=== PATIENT | male | born 1990 | race Caucasian/White ===

== ENCOUNTER 2021-03-29 21:21 | Emergency (ER) | payer OTHER ==
--- NOTE | 2021-03-29 21:49 | ED Psychosocial ---
General Chief Complaint: Suicidal Ideation Risk Stated Complaint: PTSD,SUCIDAL THOUGHTS History of Present Illness Date Seen by Provider: March 29, 2021 Time Seen by Provider: 21:46 Initial Comments Patient presenting to the emergency department for evaluation of suicidal ideation. He says he does have depression and suicidal thoughts in the past and earlier he had a plan to use one of his guns to shoot himself. He denies prior attempts. He is a who has access to weapons. He denies any physical complaints. He is tearful and anxious but in no acute distress with normal vital signs. Allergies and Home Medications Allergies Coded Allergies: No Known Drug Allergies (Unverified , 03/29/21) Patient Home Medication List Home Medication List Reviewed: Yes Review of Systems Constitutional: no symptoms reported EENTM: no symptoms reported Respiratory: no symptoms reported Cardiovascular: no symptoms reported Gastrointestinal: no symptoms reported Musculoskeletal: no symptoms reported Skin: no symptoms reported Psychiatric/Neurological: Depressed, Emotional Problems All Other Systems Reviewed Negative Unless Noted: Yes Physical Exam Vital Signs - First Documented 03/29/21 21:32 Temp 36.4 Pulse 92 Resp 18 B/P (MAP) 134/87 (103) Pulse Ox 100 O2 Delivery Room Air Capillary Refill : Height, Weight, BMI Height: '" Weight: lbs. oz. kg; BMI Method: General Appearance: no apparent distress HEENT: PERRL/EOMI Neck: supple Respiratory: no accessory muscle use Cardiovascular: regular rate, rhythm Extremities: no pedal edema Neurologic/Psychiatric: alert, oriented x 3 Appearance/Memory: appropriate appearance Skin: warm/dry Progress/Results/Core Measures Results/Orders Lab Results Laboratory Tests Test 03/29/21 21:45 03/29/21 22:10 03/29/21 22:45 Range/Units White Blood Count 7.4 4.3-11.0 10^3/uL Red Blood Count 5.19 4.35-5.85 10^6/uL Hemoglobin 15.8 13.3-17.7 G/DL Hematocrit 45 40-54 % Mean Corpuscular Volume 86 80-99 FL Mean Corpuscular Hemoglobin 30 25-34 PG Mean Corpuscular Hemoglobin Concent 36 32-36 G/DL Red Cell Distribution Width 12.4 10.0-14.5 % Platelet Count 170 130-400 10^3/uL Mean Platelet Volume 10.1 7.4-10.4 FL Immature Granulocyte % (Auto) 1 % Neutrophils (%) (Auto) 68 42-75 % Lymphocytes (%) (Auto) 21 12-44 % Monocytes (%) (Auto) 8 0-12 % Eosinophils (%) (Auto) 3 0-10 % Basophils (%) (Auto) 1 0-10 % Neutrophils # (Auto) 5.0 1.8-7.8 X 10^3 Lymphocytes # (Auto) 1.5 1.0-4.0 X 10^3 Monocytes # (Auto) 0.6 0.0-1.0 X 10^3 Eosinophils # (Auto) 0.2 0.0-0.3 10^3/uL Basophils # (Auto) 0.1 0.0-0.1 10^3/uL Immature Granulocyte # (Auto) 0.1 0.0-0.1 10^3/uL Sodium Level 137 135-145 MMOL/L Potassium Level 4.6 3.6-5.0 MMOL/L Chloride Level 102 98-107 MMOL/L Carbon Dioxide Level 26 21-32 MMOL/L Anion Gap 9 5-14 MMOL/L Blood Urea Nitrogen 15 7-18 MG/DL Creatinine 1.08 0.60-1.30 MG/DL Estimat Glomerular Filtration Rate > 60 BUN/Creatinine Ratio 14 Glucose Level 101 70-105 MG/DL Calcium Level 9.3 8.5-10.1 MG/DL Corrected Calcium 8.5-10.1 MG/DL Total Bilirubin 1.3 H 0.1-1.0 MG/DL Aspartate Amino Transf (AST/SGOT) 44 H 5-34 U/L Alanine Aminotransferase (ALT/SGPT) 57 H 0-55 U/L Alkaline Phosphatase 57 40-136 U/L Total Protein 6.7 6.4-8.2 GM/DL Albumin 4.6 H 3.2-4.5 GM/DL Salicylates Level < 0.3 L 5.0-20.0 MG/DL Acetaminophen Level < 10 L 10-30 UG/ML Serum Alcohol < 10 <10 MG/DL Urine Color YELLOW Urine Clarity CLEAR Urine pH 6.0 5-9 Urine Specific [place] 1.010 L 1.016-1.022 Urine Protein NEGATIVE NEGATIVE Urine Glucose (UA) NEGATIVE NEGATIVE Urine Ketones NEGATIVE NEGATIVE Urine Nitrite NEGATIVE NEGATIVE Urine Bilirubin NEGATIVE NEGATIVE Urine Urobilinogen 0.2 < = 1.0 MG/DL Urine Leukocyte Esterase NEGATIVE NEGATIVE Urine RBC (Auto) NEGATIVE NEGATIVE Urine RBC NONE /HPF Urine WBC NONE /HPF Urine Squamous Epithelial Cells RARE /HPF Urine Crystals NONE /LPF Urine Bacteria NEGATIVE /HPF Urine Casts NONE /LPF Urine Mucus NEGATIVE /LPF Urine Culture Indicated NO Urine Opiates Screen NEGATIVE NEGATIVE Urine Oxycodone Screen NEGATIVE NEGATIVE Urine Methadone Screen NEGATIVE NEGATIVE Urine Propoxyphene Screen NEGATIVE NEGATIVE Urine Barbiturates Screen NEGATIVE NEGATIVE Ur Tricyclic Antidepressants Screen NEGATIVE NEGATIVE Urine Phencyclidine Screen NEGATIVE NEGATIVE Urine Amphetamines Screen NEGATIVE NEGATIVE Urine Methamphetamines Screen NEGATIVE NEGATIVE Urine Benzodiazepines Screen NEGATIVE NEGATIVE Urine Cocaine Screen NEGATIVE NEGATIVE Urine Cannabinoids Screen NEGATIVE NEGATIVE SARS-CoV-2 RNA (RT-PCR) Not Detected Not Detecte My Orders Orders - SIERRA DAVIS DO Acetaminophen (03/29/21 21:33) Alcohol (03/29/21 21:33) Cbc With Automated Diff (03/29/21 21:33) Comprehensive Metabolic Panel (03/29/21 21:33) Ua Culture If Indicated (03/29/21 21:33) Drug Screen Stat (Urine) (03/29/21 21:33) Salicylate (03/29/21 21:33) Ekg Tracing (03/29/21 21:37) Covid 19 Inhouse Test (03/29/21 21:37) Vital Signs/I&O 03/29/21 21:32 Temp 36.4 Pulse 92 Resp 18 B/P (MAP) 134/87 (103) Pulse Ox 100 O2 Delivery Room Air Progress Progress Note : Progress Note Patient is medically clear from my perspective but patient is high risk in my opinion from a psychiatric perspective given he is a with a plan to shoot himself with access to weapons. After psychiatric labs are completed we will have the psychiatric screener evaluate him from a psychiatric perspective. Patient has slight transaminitis and elevated bilirubin on his blood work but he has no abdominal pain nausea or vomiting. I told him about this finding and the need for follow-up with a primary care provider for further trending of his liver enzymes and outpatient testing if necessary. Patient is still medically cleared. From a psychiatric perspective the screener saw him and we will plan on having him transferred to the CT in [place]. He has been accepted but no accepting physician has been provided yet. He is awaiting on transportation and for the CT to be ready for him. Departure Impression Primary Impression: Suicidal ideation Additional Impression: Transaminitis Disposition: 02 XFER SHT-TRM HOSP Condition: Stable Transfer Transfer Reason: Exceeds level of care Transfer Facility: [facility] Method of Transfer: EMS Departure-Patient Inst. Referrals: NO,LOCAL PHYSICIAN (PCP/Family) Primary Care Physician Patient Instructions: OUTPT MENTAL HEALTH SERVICES SIERRA DAVIS DO March 29, 2021 21:49
[2021-03-29 22:01] LABS: BASOPHILS % (AUTO) 1 % (0-10); EOSINOPHILS # (AUTO) 0.2 10^3/uL (0.0-0.3); EOSINOPHILS % (AUTO) 3 % (0-10); HEMATOCRIT 45 % (40-54); HEMOGLOBIN 15.8 G/DL (13.3-17.7); LYMPHOCYTES # (AUTO) 1.5 X 10^3 (1.0-4.0); LYMPHOCYTES % (AUTO) 21 % (12-44); MEAN CORPUSCULAR HEMOGLOBIN 30 PG (25-34); MEAN CORPUSCULAR HGB CONC 36 G/DL (32-36); MEAN CORPUSCULAR VOLUME 86 FL (80-99); MEAN PLATELET VOLUME 10.1 FL (7.4-10.4); MONOCYTES # (AUTO) 0.6 X 10^3 (0.0-1.0); MONOCYTES % (AUTO) 8 % (0-12); NEUTROPHILS % (AUTO) 68 % (42-75); PLATELET COUNT 170 10^3/uL (130-400); WHITE BLOOD COUNT 7.4 10^3/uL (4.3-11.0)
[2021-03-29 22:02] LABS: BASOPHILS # (AUTO) 0.1 10^3/uL (0.0-0.1)
[2021-03-29 22:17] LABS: CARBON DIOXIDE 26 MMOL/L (21-32); CHLORIDE 102 MMOL/L (98-107); POTASSIUM 4.6 MMOL/L (3.6-5.0); SODIUM 137 MMOL/L (135-145)
[2021-03-29 22:18] LABS: ACETAMINOPHEN < 10 UG/ML (10-30); ALANINE AMINOTRANSFERASE 57 U/L (0-55); ALBUMIN 4.6 GM/DL (3.2-4.5); ALKALINE PHOSPHATASE 57 U/L (40-136); BILIRUBIN,TOTAL 1.3 MG/DL (0.1-1.0); BUN/CREATININE RATIO 14; CALCIUM 9.3 MG/DL (8.5-10.1); CREATININE SERUM 1.08 MG/DL (0.60-1.30); GFR ESTIMATED > 60; GLUCOSE 101 MG/DL (70-105); SALICYLATE < 0.3 MG/DL (5.0-20.0); TOTAL PROTEIN 6.7 GM/DL (6.4-8.2)
[2021-03-29 22:19] LABS: CLARITY,URINE CLEAR; COLOR,URINE YELLOW
[2021-03-29 22:22] LABS: BACTERIA,URINE NEGATIVE /HPF; BILIRUBIN,URINE NEGATIVE (NEGATIVE); GLUCOSE, URINE (UA) NEGATIVE (NEGATIVE); KETONES,URINE NEGATIVE (NEGATIVE); LEUKOCYTE ESTERASE ,URINE NEGATIVE (NEGATIVE); NITRITE,URINE NEGATIVE (NEGATIVE); PROTEIN,URINE NEGATIVE (NEGATIVE); SQUAMOUS EPITHELIAL CELL,UR RARE /HPF
[2021-03-29 22:26] LABS: AMPHETAMINE SCREEN, URINE NEGATIVE (NEGATIVE); BARBITURATE SCREEN URINE NEGATIVE (NEGATIVE); BENZODIAZEPINES SCREEN URINE NEGATIVE (NEGATIVE); CANNABINOID SCREEN, URINE NEGATIVE (NEGATIVE); COCAINE SCREEN URINE NEGATIVE (NEGATIVE); METHADONE STAT NEGATIVE (NEGATIVE); METHAMPHETAMINE SCREEN URINE S NEGATIVE (NEGATIVE); OPIATE SCREEN URINE NEGATIVE (NEGATIVE); OXYCODONE STAT NEGATIVE (NEGATIVE); PROPOXYPHENE STAT NEGATIVE (NEGATIVE); TRICYCLIC ANTIDEPRESSANTS SCRE NEGATIVE (NEGATIVE)
[2021-03-30 10:54] LABS: MAGNESIUM 1.6 MG/DL (1.6-2.4)
[2021-03-30 14:42] LABS: PHOSPHORUS 3.9 MG/DL (2.3-4.7)
[2021-03-30 15:50] VITALS: BP 118/71
== END 2021-03-30 15:30 | disposition short-term general hospital (02) ==
LOC: ER FS 21:23
DX: R45.851 Suicidal ideations (principal); R74.01 Elevation of levels of liver transaminase levels; R17 Unspecified jaundice
CPT/HCPCS: 36415; 80053; 80306; 80320; 80329; 81000; 83735; 84100; 84443; 85025; 87636; 93005

== ENCOUNTER 2021-10-19 20:54 | Emergency (ER) | payer OTHER ==
[~2021-10-19] VITALS: Ht 180 cm; Wt 87.3 kg
[2021-10-19 21:04] VITALS: BP 130/85
[2021-10-19] MEDS ORDERED: KETOROLAC 60 MG/2 ML VIAL IM STA (21:08)
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
--- NOTE | 2021-10-19 21:50 | Diagnostic Imaging Report ---
INDICATION: Left shoulder pain post fall. AP, oblique, and lateral views of the left shoulder are obtained. No fracture or acute bony abnormality seen. Glenohumeral joint and AC joint appear unremarkable. IMPRESSION: Negative left shoulder. Dictated by: Dictated on workstation # [id number]
--- NOTE | 2021-10-19 21:58 | Diagnostic Imaging Report ---
INDICATION: Status post fall with chest and abdominal pain. TECHNIQUE: Multiple contiguous axial images were obtained through the chest, abdomen, and pelvis without the use of intravenous contrast. Auto Exposure Controls were utilized during the CT exam to meet ALARA standards for radiation dose reduction. There is no prior CTA chest of the abdomen or pelvis for comparison. CT chest findings: There is no evidence of mediastinal hematoma or adenopathy. There is no chest wall hematoma or lesion. Lung parenchymal windows show no pneumothorax. There is no pulmonary parenchymal contusion or infiltrate. There is no overt bony abnormality in the chest. CT abdomen and pelvis findings: There is no overt bony abnormality in the abdomen or pelvis. The liver and gallbladder are normal appearance. The spleen, adrenals, and pancreas are normal. The kidneys bilaterally appear unremarkable. There is no retroperitoneal hematoma or mass. There is no ascites or pneumoperitoneum. Visualized bowel loops are normal. IMPRESSION: Negative CT of the chest, abdomen and pelvis. Dictated by: Dictated on workstation # [id number]
[2021-10-19] MEDS ORDERED: CYCL10TA25 PO (22:25)
[2021-10-19] MEDS ORDERED: RX-CYCLOBENZAPRINE 10 MG (FLEXERIL) TAB PPK#3 PO PRN (22:30)
== END 2021-10-19 22:30 | disposition home or self-care (01) ==
LOC: EDUNIT# 20:54 → ER FS 20:56
DX: S20.212A Contusion of left front wall of thorax, initial encounter (principal); S20.222A Contusion of left back wall of thorax, initial encounter; F17.220 Nicotine dependence, chewing tobacco, uncomplicated; W17.89XA Other fall from one level to another, initial encounter; Y93.89 Activity, other specified
CPT/HCPCS: 71250; 73030; 74176